=== PATIENT | male | born 1945 | race Caucasian/White ===

== ENCOUNTER 2018-09-06 13:42 | Day surgery (SDC) | payer MEDICARE ==
[2018-09-06 13:06] VITALS: BMI 24.4
[2018-09-06] MEDS ORDERED: Propofol 10 mg/ml Inj (20 ML) ONE (14:53)
[2018-09-06] MEDS ORDERED: Succinylcholine 200 mg/10 ml Inj IV ONE (14:54)
[2018-09-06] MEDS ORDERED: Rocuronium 10 mg/ml (5 ml) ONE (14:54)
[2018-09-06] MEDS: Bupivacaine 0.5% 50 ML IJ ONE ×2 (15:15→16:25)
[2018-09-06] MEDS ORDERED: ePHEDrine 50 mg/ml Inj ONE (15:29)
[2018-09-06] MEDS ORDERED: Neostigmine Methylsulfate 3mg/3ml Syringe IV ONE (16:30)
[2018-09-06] MEDS ORDERED: HYDROmorphone 0.5 mg/0.5 ml ISec IVP PRN (16:42)
[2018-09-06] MEDS ORDERED: Lactated Ringer's 1,000 ML IV SCH (16:45)
--- NOTE | 2018-09-06 17:04 | PCM.SURG1 ---
Surgeon's Initial Post Op Note - Surgeon's Notes Surgeon: Dr. Paredes Sterilization Specialist: Dr. Keenan PGY3, Dr. Nielson PGY1 Type of Anesthesia: General Endo Pre-Operative Diagnosis: left inguinal hernia Operative Findings: see dictation Post-Operative Diagnosis: same Operation Performed: open left inguinal hernia repair w/ mesh Specimen/Specimens Removed: hernia sac Estimated Blood Loss: EBL {In ML}: 5 Blood Products Given: N/A Drains Used: No Drains Post-Op Condition: Good Date of Surgery/Procedure: 09/06/18 Time of Surgery/Procedure: 17:04
[2018-09-06 17:10] VITALS: RESP 12; TEMP 98
[2018-09-06 17:28] VITALS: PULSE 64
[2018-09-06 17:45] VITALS: O2SAT 95
[2018-09-06 18:40] VITALS: BP 149/69
--- NOTE | 2018-09-07 07:06 | OP ---
PROCEDURE DATE: 09/06/2018 PREOPERATIVE DIAGNOSIS: Left inguinal hernia. POSTOPERATIVE DIAGNOSIS: Indirect left inguinal hernia. PROCEDURE PERFORMED: Repair of the left indirect inguinal hernia with mesh. SURGEON: Walter Paredes MD ASSISTANTS: Destiney Keenan DO and Dr. Nielson. ANESTHESIOLOGIST: Felipe Chen MD ANESTHESIA: General endotracheal anesthesia. ESTIMATED BLOOD LOSS: Minimal. SPECIMEN: Hernia sac. INDICATIONS: The patient is a 72-year-old male with history of a bulge in the left groin associated with tenderness and discomfort. The patient was examined. He was noted to have a left inguinal hernia, and was scheduled for repair. DESCRIPTION OF PROCEDURE: The patient was brought to the operating room and placed on the operating room table in the supine position. The patient was connected to EKG, blood pressure, and pulse oximetry monitors. The patient then underwent general endotracheal anesthesia and was prepped and draped in the usual sterile fashion. First, a standard time-out procedure took place when everybody in the room agreed as to the patient's identity, diagnosis, and the procedure to be performed. Using lidocaine mixed with Marcaine, the line of incision was injected and an incision was made using #15 blade between the pubic tubercle and anterior superior iliac spine. The incision was carried through the subcutaneous fat down to the external oblique aponeurosis. The aponeurosis was incised along its fibers and elevated and carefully dissected out from the underlying tissues. The ilioinguinal nerve, which was noted on top of it, was carefully dissected out and pushed aside in order to avoid injury. Now, the cord was carefully elevated at the level of the external inguinal ring around the Jeancarlos drain and skeletonized. The hernia sac was from the cord structures, twisted, and ligated at the base. The hernia appear to contain small bowel. Now the preperitoneal space was mobilized with the internal ring of the inguinal canal and the Ultrapro plug was placed into the defect with the posterior leads in the preperitoneal space and the anterior leaf on top of the inguinal floor. The edges of that plug was sutured to the edges of the transversalis fascia superiorly and the inguinal ring inferiorly. A keyhole was cut out for the spermatic cord exit site, which was sutured behind it and placed flatly on the floor underneath the external oblique aponeurosis. Now the cord was placed back in its original position and so was the ilioinguinal nerve. The external oblique aponeurosis was sutured together using 3-0 Vicryl and the external ring of the inguinal canal was recreated. The area was now infiltrated with lidocaine mixed with Toradol and the wound was copiously irrigated and suctioned out. There was excellent hemostasis noted. The wound was closed in layers using 3-0 Vicryl for the Pratima's fascia, 3-0 Vicryl for the deep dermal layer, and 4-0 Monocryl for skin. A sterile Dermabond dressing was applied to the wound. The patient tolerated the procedure well and there were no complications. The wound was covered with Dermabond. The patient was awakened and transferred to the recovery room for further observation. Walter Paredes MD
== END 2018-09-06 19:00 | disposition home or self-care (01) ==
LOC: EDSEX → SDS 13:42 → EDBD 09-13 07:30
PROVIDERS: ATTEND General Practice
DX: K40.90 Unilateral inguinal hernia, without obstruction or gangrene, not specified as recurrent (principal)